=== PATIENT | male | born 1965 | race Caucasian/White ===

== ENCOUNTER → 2024-05-17 | Outpatient (CLI) | payer BC, SELFPAY ==
--- NOTE | 2024-05-17 | XR_ITS ---
Examination: Fingers, right hand third digit 3 views Technique: AP, oblique, lateral views right hand third digit 3 views. Exam date and time: May 17, 2024 1135 hours INDICATIONS: Right hand third digit pain beginning one year ago FINDINGS: No fracture or dislocation No cortical bone destruction No opaque foreign body Minimal osteoarthritis distal interphalangeal joint IMPRESSION: No fracture or dislocation No foreign body No cortical bone destruction
== END | disposition home or self-care (01) ==
LOC: CDIM 10:42
PROVIDERS: PCP Internal Medicine; Referring Provider Orthopaedic Surgery; Visit Provider Orthopaedic Surgery
DX: M79.644 Pain in right finger(s) (principal)
CPT/HCPCS: 73140

== ENCOUNTER → 2024-07-20 | Outpatient (CLI) | payer BC, SELFPAY ==
--- NOTE | 2024-07-20 08:39 | XR_ITS ---
Examination: Retroperitoneal ultrasound, complete Technique: Multiple high resolution grayscale images of the retroperitoneum obtained, including kidneys and bladder. Exam date and time:July 20, 2024 0940 hours INDICATIONS: Right flank pain beginning 4 days ago. FINDINGS: Right kidney 13.7 cm renal cortex 2.0 cm Upper pole cyst 3.9 cm Perinephric stranding Left kidney 13.7 cm cortex 2.1 cm Multiple renal cysts, the largest upper pole 4.1 cm Mild bilateral renal parenchymal scar formation No hydronephrosis No bladder mass Bladder prevoid volume 440 cc Prostate volume 32 cc no prostate nodules IMPRESSION: Mild bilateral renal parenchymal scar formation. No hydronephrosis
[2024-07-20 10:30] LABS: Basophils % (Auto) 0 % (0-2.5); Eosinophils # (Auto) 0.1 Thou/mm3 (0.0-0.5); Eosinophils % (Auto) 3 % (0-10); Hematocrit 46.6 % (41.0-53.0); Hemoglobin 16.2 g/dL (13.5-16.0); Immature Granulocytes % (Auto) 0 % (0-0); Immature Granulocytes Auto 0.01 Thou/mm3 (0.00-0.00); Lymphocytes # (Auto) 1.2 Thou/mm3 (1.0-4.8); Lymphocytes % (Auto) 23 % (10-50); Mean Corpuscular HGB Conc 34.8 g/dl (31.0-37.0); Mean Corpuscular Hemoglobin 27.8 pg (25.0-35.0); Mean Corpuscular Volume 80 fL (80-100); Monocytes # (Auto) 0.5 Thou/mm3 (0.0-0.8); Monocytes % (Auto) 10 % (0-12); Neutrophils # (Auto) 3.4 Thou/mm3 (1.8-7.7); Neutrophils % (Auto) 65 % (37-80); Nucleated Red Blood Cell % 0 /100 WBC (0); Platelet Count 163 Thou/mm3 (140-440); RDW Standard Deviation 38.6 fL (35.1-43.9); Red Blood Count 5.82 Miln/mm3 (4.50-5.90); White Blood Count 5.3 Thou/mm3 (3.8-10.6)
[2024-07-20 10:49] LABS: Glucose Estimated Average 166 mg/dL (80-131); Hemoglobin A1C 7.4 % Hgb (4.8-6.0)
[2024-07-20 10:53] LABS: Vitamin B12 435 pg/mL (211-911); Vitamin D 25 Hydroxy Total 93.9 ng/mL (7.3-40.2)
[2024-07-20 10:56] LABS: Alanine Aminotransferase 20 U/L (10-49); Albumin, Serum 4.3 gm/dL (3.5-5.0); Albumin/Globulin Ratio 2.4 (1.2-2.2); Alkaline Phosphatase 56 U/L (46-116); Anion Gap 9 (7-16); Aspartate Amino Transferase 16 U/L (0-34); BUN/Creatinine Ratio 16 Ratio (12-20); Blood Urea Nitrogen 16 mg/dL (9-23); Calcium 9.5 mg/dL (8.3-10.6); Calcium (Corrected) 9.5 mg/dL (8.5-10.1); Carbon Dioxide 29.2 mMol/L (20.0-31.0); Cardiac Risk Estimate 6.7 RATIO (4.0-6.7); Chloride 103 mMol/L (98-107); Cholesterol 202 mg/dL (132-200); Globulin 1.8 gm/dL (2.3-3.5); Glucose 132 mg/dL (74-106); HDL Cholesterol 30 mg/dL (40-60); LDL Cholesterol,Calculated 152 mg/dL (0-130); Osmolality,Calculated 284 (275-295); Potassium 4.7 mMol/L (3.4-5.1); Sodium 141 mMol/L (136-145); Thyroid Stimulating Hormone 1.74 uIU/mL (0.55-4.78); Total Protein 6.1 gm/dL (5.7-8.2); Triglycerides 102 mg/dL (30-150); eGFR > 60 See Note
[2024-07-20 11:06] LABS: Collection Type, Urine Clean Catch; Squamous Epithelial Cell,Urine 0 /hpf (0-5)
[2024-07-20 11:55] LABS: Bilirubin,Urine Negative (Negative); Blood,Urine Negative (Negative); Clarity,Urine Clear (Clear/Hazy); Color,Urine Colorless (Lt Yel-Yel); Glucose, Urine Negative (Negative); Ketones,Urine Negative (Negative); Leukocyte Esterase,Urine Negative (Negative); Nitrite,Urine Negative (Negative); PH,Urine 6.5 (5.0-7.0); Protein,Urine Negative (Neg - Trace); RBC,Urine 1 /hpf (0-3); Specific Gravity,Urine 1.009 (1.001-1.035); Urobilinogen,Urine Negative mg/dL (0.0-1.0); WBC,Urine < 1 /hpf (0-5)
[2024-07-20 12:01] LABS: Creatinine,Random Urine 39 mg/dL (30-125)
== END | disposition home or self-care (01) ==
LOC: CDIM 08:37 → COPL 10:01
PROVIDERS: PCP Internal Medicine; Referring Provider Internal Medicine; Visit Provider Internal Medicine
DX: Z00.00 Encounter for general adult medical examination without abnormal findings (principal); E11.9 Type 2 diabetes mellitus without complications; I10 Essential (primary) hypertension; E78.5 Hyperlipidemia, unspecified; N23 Unspecified renal colic; N28.89 Other specified disorders of kidney and ureter
CPT/HCPCS: 36415; 76770; 80053; 80061; 81001; 82306; 82570; 82607; 83036; 84153; 84443; 84550; 85025

== ENCOUNTER → 2024-09-08 | Outpatient (CLI) | payer BC, SELFPAY ==
--- NOTE | 2024-09-08 12:49 | XR_ITS ---
Examination: Lumbar spine, 5 views Technique: Lumbar spine AP, lateral, coned lateral lower lumbar spine, bilateral obliques 5 views Exam date and time: September 08, 2024 1329 hours INDICATIONS: Lower back pain months. FINDINGS: Adequate alignment lumbar vertebral bodies No lumbar fracture Mild diffuse lumbar disc narrowing Mild lumbar spondylosis IMPRESSION: Mild diffuse lumbar degenerative disc disease
--- NOTE | 2024-09-08 13:00 | XR_ITS ---
Examination: CT abdomen and pelvis without contrast. Coronal 3-D reconstructions. Sagittal 2-D reconstructions. Date and time of exam:September 08, 2024 1305 hours INDICATIONS: Bilateral flank pain 3 months CTDI: vol (mGy): 8.86 DLP: (mGycm): 525 Technique: Axial images of the abdomen have been obtained, 3 mm slice thickness Intravenous contrast material has not been administered. Low dose protocols were performed. One or more of the following dose reduction techniques were used; automated exposure control, adjustment of the mA and/or KV according to patient size, use of iterative reconstruction technique. Findings: No focal liver or splenic lesion No gallstones No pancreatic or adrenal mass Bilateral benign renal cysts No hydronephrosis renal or ureteral calculi Aorta normal size No bowel obstruction 2 mm calculus in the bladder No significant prostatomegaly IMPRESSION: No current hydronephrosis 2 mm calculus in the bladder
== END | disposition home or self-care (01) ==
LOC: CCTX 12:43
PROVIDERS: PCP Internal Medicine; Referring Provider Internal Medicine; Visit Provider Internal Medicine
DX: N21.0 Calculus in bladder (principal); M51.360 Other intervertebral disc degeneration, lumbar region with discogenic back pain only
CPT/HCPCS: 72110; 74176

== ENCOUNTER → 2024-12-08 | Outpatient (CLI) | payer BC, SELFPAY ==
[2024-12-08 11:16] LABS: Collection Type, Urine Clean Catch; Squamous Epithelial Cell,Urine 0 /hpf (0-5)
[2024-12-08 12:03] LABS: Basophils # (Auto) 0.1 Thou/mm3 (0.0-0.2); Basophils % (Auto) 1 % (0-2.5); Eosinophils # (Auto) 0.2 Thou/mm3 (0.0-0.5); Eosinophils % (Auto) 2 % (0-10); Hematocrit 46.9 % (41.0-53.0); Hemoglobin 16.3 g/dL (13.5-16.0); Immature Granulocytes Auto 0.02 Thou/mm3 (0.00-0.00); Lymphocytes # (Auto) 1.1 Thou/mm3 (1.0-4.8); Lymphocytes % (Auto) 18 % (10-50); Mean Corpuscular HGB Conc 34.8 g/dl (31.0-37.0); Mean Corpuscular Hemoglobin 28.7 pg (25.0-35.0); Mean Corpuscular Volume 83 fL (80-100); Monocytes # (Auto) 0.5 Thou/mm3 (0.0-0.8); Monocytes % (Auto) 7 % (0-12); Neutrophils # (Auto) 4.6 Thou/mm3 (1.8-7.7); Neutrophils % (Auto) 72 % (37-80); Nucleated Red Blood Cell # 0.00 Thou/mm3 (0.00-0.00); Nucleated Red Blood Cell % 0 /100 WBC (0); Platelet Count 172 Thou/mm3 (140-440); RDW Standard Deviation 39.2 fL (35.1-43.9); Red Blood Count 5.68 Miln/mm3 (4.50-5.90); White Blood Count 6.4 Thou/mm3 (3.8-10.6)
[2024-12-08 12:09] LABS: Bilirubin,Urine Negative (Negative); Blood,Urine Negative (Negative); Clarity,Urine Clear (Clear/Hazy); Color,Urine Yellow (Lt Yel-Yel); Culture Indicated,Urine Not Indicated; Glucose, Urine Trace (Negative); Ketones,Urine Negative (Negative); Leukocyte Esterase,Urine Negative (Negative); Nitrite,Urine Negative (Negative); PH,Urine 6.0 (5.0-7.0); Protein,Urine Negative (Neg - Trace); RBC,Urine 3 /hpf (0-3); Specific Gravity,Urine 1.022 (1.001-1.035); Urobilinogen,Urine Negative mg/dL (0.0-1.0); WBC,Urine 1 /hpf (0-5)
[2024-12-08 12:24] LABS: Albumin, Serum 4.5 gm/dL (3.5-5.0); Anion Gap 8 (7-16); BUN/Creatinine Ratio 12 Ratio (12-20); Blood Urea Nitrogen 12 mg/dL (9-23); Calcium 9.7 mg/dL (8.3-10.6); Calcium (Corrected) 9.7 mg/dL (8.5-10.1); Carbon Dioxide 30.7 mMol/L (20.0-31.0); Chloride 103 mMol/L (98-107); Creatinine (Component) 1.0 mg/dL (0.6-1.3); Glucose 98 mg/dL (74-106); Osmolality,Calculated 282 (275-295); Phosphorous 2.8 mg/dL (2.4-5.1); Potassium 4.7 mMol/L (3.4-5.1); Sodium 142 mMol/L (136-145); eGFR > 60 See Note
[2024-12-08 12:25] LABS: Creatinine MALB Rnd Ur 161 mg/dL (30-125); Microalbumin Creat Ratio 6 mg/gCrea (<30); Microalbumin, Random Urine 9 mg/L (0-300)
== END | disposition home or self-care (01) ==
LOC: COPL 10:27
PROVIDERS: PCP Internal Medicine; Referring Provider Internal Medicine; Visit Provider Internal Medicine
DX: Z00.00 Encounter for general adult medical examination without abnormal findings (principal); N18.9 Chronic kidney disease, unspecified; D63.1 Anemia in chronic kidney disease
CPT/HCPCS: 36415; 80069; 81001; 82043; 82570; 85025

== ENCOUNTER → 2024-12-18 | Outpatient (CLI) | payer BC, SELFPAY ==
[2024-12-18 10:50] LABS: Parathyroid Hormone Intact 64.1 pg/ml (18.5-88.0)
[2024-12-18 10:58] LABS: Vitamin D 25 Hydroxy Total 51.5 ng/mL (7.3-40.2)
[2024-12-18 11:01] LABS: Glucose Estimated Average 160 mg/dL (80-131); Hemoglobin A1C 7.2 % Hgb (4.8-6.0)
[2024-12-18 11:06] LABS: Collection Type, Urine Clean Catch
[2024-12-18 11:11] LABS: Albumin, Serum 4.4 gm/dL (3.5-5.0); Anion Gap 9 (7-16); BUN/Creatinine Ratio 10 Ratio (12-20); Blood Urea Nitrogen 10 mg/dL (9-23); Calcium 9.9 mg/dL (8.3-10.6); Calcium (Corrected) 9.9 mg/dL (8.5-10.1); Carbon Dioxide 30.7 mMol/L (20.0-31.0); Chloride 105 mMol/L (98-107); Creatinine (Component) 1.0 mg/dL (0.6-1.3); Glucose 103 mg/dL (74-106); Osmolality,Calculated 287 (275-295); Phosphorous 3.0 mg/dL (2.4-5.1); Potassium 4.5 mMol/L (3.4-5.1); Sodium 145 mMol/L (136-145); Total Protein 5.9 gm/dL (5.7-8.2); eGFR > 60 See Note
[2024-12-18 11:21] LABS: Uric Acid 5.8 mg/dL (3.7-9.2)
[2024-12-18 12:50] LABS: Bilirubin,Urine Negative (Negative); Blood,Urine Negative (Negative); Clarity,Urine Clear (Clear/Hazy); Color,Urine Lt-Yellow (Lt Yel-Yel); Glucose, Urine Negative (Negative); Ketones,Urine Negative (Negative); Leukocyte Esterase,Urine Negative (Negative); Nitrite,Urine Negative (Negative); PH,Urine 7.5 (5.0-7.0); Protein,Urine Negative (Neg - Trace); RBC,Urine 3 /hpf (0-3); Specific Gravity,Urine 1.016 (1.001-1.035); Squamous Epithelial Cell,Urine < 1 /hpf (0-5); Urobilinogen,Urine Negative mg/dL (0.0-1.0); WBC,Urine 1 /hpf (0-5)
== END | disposition home or self-care (01) ==
LOC: COPL 09:23
PROVIDERS: PCP Internal Medicine; Referring Provider Internal Medicine; Visit Provider Internal Medicine
DX: N20.0 Calculus of kidney (principal); E11.9 Type 2 diabetes mellitus without complications
CPT/HCPCS: 36415; 80069; 81001; 82306; 83036; 83970; 84155; 84550

== ENCOUNTER → 2024-12-19 | Outpatient (CLI) | payer BC, SELFPAY ==
[2024-12-19 14:13] LABS: Misc Send Out* See Sep Rpt
== END | disposition home or self-care (01) ==
LOC: SLDO 14:09
PROVIDERS: PCP Internal Medicine; Referring Provider Internal Medicine; Visit Provider Internal Medicine
DX: N20.0 Calculus of kidney (principal); E11.9 Type 2 diabetes mellitus without complications
CPT/HCPCS: 82340; 82507; 82570; 83735; 83945; 83986; 84105; 84133; 84300; 84392; 84560

== ENCOUNTER → 2025-01-05 | Outpatient (CLI) | payer BC, SELFPAY ==
--- NOTE | 2025-01-05 13:00 | XR_ITS ---
Examination: CT abdomen and pelvis without contrast. Coronal 3-D reconstructions. Sagittal 2-D reconstructions. Date and time of exam:January 05, 2025, 1315 hours, comparison September 08, 2024 INDICATIONS: Right flank pain beginning 7 months ago CTDI: vol (mGy): 8.06 DLP: (mGycm): 475 Technique: Axial images of the abdomen have been obtained, 3 mm slice thickness Intravenous contrast material has not been administered. Low dose protocols were performed. One or more of the following dose reduction techniques were used; automated exposure control, adjustment of the mA and/or KV according to patient size, use of iterative reconstruction technique. Findings: No focal liver or splenic lesions No gallstones No pancreatic or adrenal mass Bilateral benign renal cysts, the largest on the right side 4.7 cm, the largest on the left side 3.4 cm No renal or ureteral calculi, no hydronephrosis Aorta normal size Normal appendix No bowel obstruction Mild prostatomegaly Urinary bladder intact Tiny fat-containing inguinal hernias IMPRESSION: Bilateral benign renal cysts Normal appendix No bowel obstruction Mild prostatomegaly
== END | disposition home or self-care (01) ==
LOC: CCTX 12:45
PROVIDERS: PCP Internal Medicine; Referring Provider Internal Medicine; Visit Provider Internal Medicine
DX: N28.1 Cyst of kidney, acquired (principal); N40.0 Benign prostatic hyperplasia without lower urinary tract symptoms
CPT/HCPCS: 74176

== ENCOUNTER 2025-02-06 08:50 | Day surgery (SDC) | payer BC, SELFPAY ==
--- NOTE | 2025-01-31 06:20 | EKG_ITS ---
[facility] Test Date: 2025-01-31 Pat Name: LEONARDA PASCUAL Department: Room: - Gender: Male Director Of Quality Control: HELIO : 1965 Requested By: Maurilio De La Cruz Order Number: [id number] Reading MD: Maurilio De La Cruz Measurements Intervals Hydro Rate: 74 P: 51 OR: 135 QRS: -31 QRSD: 114 T: 36 QT: 392 QTc: 436 Interpretive Statements SINUS RHYTHM MARKED LEFT AXIS DEVIATION [QRS AXIS < -30] INCOMPLETE RIGHT BUNDLE BRANCH BLOCK [90+ ms QRS DURATION, TERMINAL R IN V1/V2, 40+ ms S IN I/aVL/V4/V5/V6] MINIMAL VOLTAGE CRITERIA FOR LVH, CONSIDER NORMAL VARIANT [MEETS CRITERIA IN ONE OF: R(aVL), S(V1), R(V5), R(V5/V6)+S(V1)] POSSIBLE LATERAL MYOCARDIAL INFARCTION , PROBABLY OLD [30 ms Q WAVE IN I/aVL/V5/V6] Compared to ECG 06/02/2017 11:03:24 Incomplete right bundle-branch block now present Myocardial infarct finding now present Sinus arrhythmia no longer present /store/S0/[id number]/ecg/[id number].pdf
[2025-01-31 07:09] VITALS: BMI 26.5
[2025-01-31 08:49] LABS: Collection Type, Urine Clean Catch; Squamous Epithelial Cell,Urine 0 /hpf (0-5)
[2025-01-31 10:06] LABS: Basophils # (Auto) 0.1 Thou/mm3 (0.0-0.2); Basophils % (Auto) 1 % (0-2.5); Eosinophils # (Auto) 0.1 Thou/mm3 (0.0-0.5); Eosinophils % (Auto) 2 % (0-10); Hematocrit 46.6 % (41.0-53.0); Hemoglobin 15.6 g/dL (13.5-16.0); Immature Granulocytes Auto 0.02 Thou/mm3 (0.00-0.00); Lymphocytes # (Auto) 1.5 Thou/mm3 (1.0-4.8); Lymphocytes % (Auto) 21 % (10-50); Mean Corpuscular HGB Conc 33.5 g/dl (31.0-37.0); Mean Corpuscular Hemoglobin 27.7 pg (25.0-35.0); Mean Corpuscular Volume 83 fL (80-100); Monocytes # (Auto) 0.6 Thou/mm3 (0.0-0.8); Monocytes % (Auto) 8 % (0-12); Neutrophils # (Auto) 4.8 Thou/mm3 (1.8-7.7); Neutrophils % (Auto) 68 % (37-80); Nucleated Red Blood Cell # 0.00 Thou/mm3 (0.00-0.00); Nucleated Red Blood Cell % 0 /100 WBC (0); Platelet Count 196 Thou/mm3 (140-440); RDW Standard Deviation 39.7 fL (35.1-43.9); Red Blood Count 5.63 Miln/mm3 (4.50-5.90); White Blood Count 7.1 Thou/mm3 (3.8-10.6)
[2025-01-31 10:08] LABS: Bilirubin,Urine Negative (Negative); Blood,Urine Negative (Negative); Clarity,Urine Clear (Clear/Hazy); Color,Urine Yellow (Lt Yel-Yel); Glucose, Urine Negative (Negative); Ketones,Urine Negative (Negative); Leukocyte Esterase,Urine Negative (Negative); Nitrite,Urine Negative (Negative); PH,Urine 5.5 (5.0-7.0); Protein,Urine Negative (Neg - Trace); RBC,Urine 1 /hpf (0-3); Specific Gravity,Urine 1.025 (1.001-1.035); Urobilinogen,Urine Negative mg/dL (0.0-1.0); WBC,Urine 1 /hpf (0-5)
[2025-01-31 10:19] LABS: Alanine Aminotransferase 19 U/L (10-49); Albumin, Serum 4.5 gm/dL (3.5-5.0); Albumin/Globulin Ratio 2.3 (1.2-2.2); Alkaline Phosphatase 45 U/L (46-116); Anion Gap 10 (7-16); Aspartate Amino Transferase 20 U/L (0-34); BUN/Creatinine Ratio 9 Ratio (12-20); Bilirubin,Total 0.8 mg/dL (0.3-1.2); Blood Urea Nitrogen 9 mg/dL (9-23); Calcium 9.7 mg/dL (8.3-10.6); Calcium (Corrected) 9.7 mg/dL (8.5-10.1); Carbon Dioxide 29.3 mMol/L (20.0-31.0); Chloride 104 mMol/L (98-107); Creatinine (Component) 1.0 mg/dL (0.6-1.3); Estimated Creatinine Clearance 84.2 mL/min (>60); Globulin 2.0 gm/dL (2.3-3.5); Glucose 112 mg/dL (74-106); Osmolality,Calculated 284 (275-295); Potassium 4.3 mMol/L (3.4-5.1); Sodium 143 mMol/L (136-145); Total Protein 6.5 gm/dL (5.7-8.2); eGFR > 60 See Note
[2025-01-31 10:21] LABS: Prostate Specific Antigen 2.03 ng/mL (0-4.00)
--- NOTE | 2025-02-05 11:19 | ESHP_ITS ---
RE: LEONARDA PASCUAL : 1965 DATE OF ADMISSION: 02/05/2025 HISTORY OF PRESENT ILLNESS: He is a 59 year old gentleman with a pain on his right side. He had a history of kidney pain in 06/2024. The patient has pain going from the front to the back. There is no history of kidney stones. Patient had trouble urinating 6-7 times after this previous episode. There is no history of gross hematuria. PAST SURGICAL HISTORY: Previous surgery is none. SOCIAL HISTORY: Patient has 2 children. ALLERGIES: NONE KNOWN. PAST MEDICAL HISTORY: He has history of diabetes mellitus and history of hypertension. HOME MEDICATIONS: He takes insulin. PHYSICAL EXAMINATION: HEENT: Normal. Neck: Supple. Lungs: Clear. Cardiovascular: Heart sounds are normal. Abdomen: Soft without any organomegaly. No guarding. No rigidity. Extremities: Normal. Phallus is normal. Testes are down. Scrotum and rectal: Examination reveal moderately enlarged smooth prostate without any hard nodules. Patient had a ultrasound of the kidney which revealed mild bilateral parenchymal scar formation without any hydronephrosis. Patient had CT scan of the abdomen which revealed benign bilateral renal cysts. No kidney stones. IMPRESSION: History of right renal and ureteral colic. PLAN: Cystoscopy, right retrograde pyelogram, possible right ureteroscopy, possible right ureteral stent insertion in view of his recurrent right renal colic and ureteral colic. Planned procedure risks and complications have been discussed with the patient. Patient has understood them and agreed to proceed. cc: Dr. Abiodun Morton MD DT: 11:10:22 TT: 11:17:00 Ref: [id number] - TID: [id number]
[2025-02-06] VITALS (7 sets, daily range): BP systolic 128–155; BP diastolic 77–92; PULSE 84–103; RESP 14–20; TEMP 36.6–37.6; O2SAT 94–100; BMI 26.0
[2025-02-06] MEDS: RINGERS LACTATED 1000 ML 1,000 ML 20 ML IV (09:58)
--- NOTE | 2025-02-06 10:45 | XR_ITS ---
EXAMINATION: OR retrograde pyelogram right with without KUB Fluoroscopy 11 spot fluoroscopic abdomen films Date and time: February 06, 2025, 1254 hours INDICATIONS: Right flank pain 7 months TECHNIQUE AND FINDINGS: 11. Spot fluoroscopic stones of the abdomen were obtained Opacification of the right renal calyces and dilated mid to lower ureter Ureteral stent in satisfactory position Fluoroscopy 58 seconds radiation dose 11.45 mGy IMPRESSION: Retrograde pyelogram as above
--- NOTE | 2025-02-06 12:33 | SUR.PHASEI ---
1233: Pt. wakes to name then drifts back to sleep, vitals stable, breathing unlabored, no complaint of pain or nausea, no dressing in place, no active bleed noted, report recieved from Saw GOETZ and Conrad DUDLEY.
--- NOTE | 2025-02-06 13:25 | SUR.PHASEII ---
1325: Pt. AAOx4, vitals stable, breathing unlabored, no complaint of pain or nausea, no dressing in place, pt. able to void hematuria, pt. tolerated sips of water well, pt. ambulated to wheelchair with steady gait and no assist, no complications. Gave discharge instructions to the pt. and her ride, both verbalized understanding and had no further questions. Pt. left with all personal belongings.
--- NOTE | 2025-02-06 13:34 | ESOP_ITS ---
RE: LEONARDA PASCUAL : 1965 DATE OF OPERATION: 02/06/2025 PREOPERATIVE DIAGNOSES: Recurrent right ureteral and renal colic, history of bilateral renal cysts, and history of diabetes mellitus. POSTOPERATIVE DIAGNOSES: Recurrent right ureteral and renal colic, history of bilateral renal cysts, and history of diabetes mellitus. PROCEDURE PERFORMED: Cystoscopy, right retrograde pyelogram, right ureteroscopy, removal of a right distal ureterovesical junction stone, and insertion of the right ureteral stent. FINDINGS: Right ureterocele and 0.5 to 0.6 cm ureteral stone near the right ureterocele. DESCRIPTION OF PROCEDURE: Patient is a 59-year-old diabetic male with recurrent UTIs. He had at least 7 episodes of severe ureteral colic going from the back to the front. He had 2 CT scans of the abdomen and pelvis done. One of them revealed a 0.5 mm stone near the right bladder area. Patient is diabetic and he is on insulin. After the patient was brought to the operating table under adequate general anesthesia in dorsal lithotomy position, parts were prepped and draped in the usual fashion. Cystoscopy was then carried out which revealed adequate urethral meatus, normal-appearing urethra, and mildly enlarged bilobed prostate. Scope was introduced into the bladder. Residual urine was about 2 ounces, yellow and clear, and was sent for culture and sensitivity examination. Inspection of the bladder revealed no intravascular stones or tumors. Right ureteral orifice revealed a right ureterocele. The left ureteral orifice is normal. A guidewire was passed through the right ureteral orifice which is quite small, but has a right-sided ureterocele. The guidewire was passed and then the ureteral catheter was passed over the guidewire and was advanced all the way up to the right kidney. There was no obstruction to the passage of the right ureteral catheter. Right retrograde pyelogram was obtained which revealed no hydronephrosis on the right side and a normal appearing calyceal system. The open-tip ureteral catheter was removed. I then did a ureteroscopy on the right side with a semi-rigid ureteroscope. It was passed through the penis into the bladder and up the ureter. Ureter appears to be open except at the end. Near the right ureterocele, I saw the stone which is about 0.5-0.6 cm in size. This was basketed and this was pulled out into the bladder and removed and sent for chemical examination. Repeat ureteroscopy did not reveal any further stones. I decided to put a stent and put a 5-Ghanaian 26 cm double-J ureteral stent which was passed over the guidewire under C-arm fluoroscopy control so as the proximal loop is lying in the right kidney and distal loop is in the bladder. Scope was removed. Patient tolerated the entire procedure well and left the room in good condition. Patient's PSA is normal at 2.03 and rectal examination also revealed a small prostate without any hard nodules. Thank you very much for your kind referral. cc: Dr. Abiodun Morton MD DT: 12:52:57 TT: 13:31:00 Ref: [id number] - TID: [id number]
[2025-02-15 17:52] LABS: Stone Analysis Source R URETERAL
[2025-02-16 06:41] LABS: Stone Analysis Weight 0.010 g
== END 2025-02-06 13:25 | disposition home or self-care (01) ==
PROVIDERS: Anesthesiology; PCP Internal Medicine; Referring Provider Surgery; Visit Provider Surgery
PROC: 0TJB8ZZ Inspection of Bladder, Via Natural or Artificial Opening Endoscopic (ICD-10-PCS; CPT 52000; principal; 2025-02-06 10:45)
DX: N23 Unspecified renal colic (principal); N28.89 Other specified disorders of kidney and ureter; Z01.810 Encounter for preprocedural cardiovascular examination; N20.1 Calculus of ureter; E11.9 Type 2 diabetes mellitus without complications
CPT/HCPCS: 52352; 52332; 74420; 82365; 87086; 93005; A4217; A4649; C1876; C1894; J0131; J0694; J1100; J1885; J2250; J2371; J2405; J2704; J2765; J3010; J3490; J7120

== ENCOUNTER 2025-02-18 09:53 | Emergency (ER) | payer BC, SELFPAY ==
[2025-02-18 09:54] VITALS: BMI 25.8
[2025-02-18 10:00] VITALS: BP 157/82; PULSE 77; RESP 18; TEMP 36.4; O2SAT 100; BMI 25.8
--- NOTE | 2025-02-18 10:23 | XR_ITS ---
EXAMINATION: PA chest single view TECHNIQUE: Upright PA chest single view Date and time: February 18, 2025, 1046 hours, comparison October 31, 2020 INDICATIONS: Onset weakness today. FINDINGS: Normal heart size. No pneumonia or pulmonary edema. The osseous structures are intact IMPRESSION: No active disease
--- NOTE | 2025-02-18 10:23 | EKG_ITS ---
[facility] Test Date: 2025-02-18 Pat Name: LEONARDA APSCUAL Department: Room: - Gender: Male Volumetric Weigher: : 1965 Requested By: Ruby Mejia Order Number: [id number] Reading MD: Ruby Mejia Measurements Intervals [place] Rate: 84 P: 47 HI: 142 QRS: -33 QRSD: 113 T: 35 QT: 373 QTc: 441 Interpretive Statements SINUS RHYTHM LEFT AXIS DEVIATION [QRS AXIS < -30] INCOMPLETE RIGHT BUNDLE BRANCH BLOCK [90+ ms QRS DURATION, TERMINAL R IN V1/V2, 40+ ms S IN I/aVL/V4/V5/V6] MINIMAL VOLTAGE CRITERIA FOR LVH, CONSIDER NORMAL VARIANT [MEETS CRITERIA IN ONE OF: R(aVL), S(V1), R(V5), R(V5/V6)+S(V1)] NONSPECIFIC ST ELEVATION [0.05+ mV ST ELEVATION] Compared to ECG 01/31/2025 07:59:18 ST (T wave) deviation now present Myocardial infarct finding no longer present /store/S0/[id number]/ecg/[id number].pdf
--- NOTE | 2025-02-18 10:24 | EDRME_ITS ---
Rapid Medical Screening Exam [facility] Arrival date/time: 02/18/25 09:53 This is a 59-year-old male that comes into the emergency room with complaints of weakness. Patient states a couple days ago he had some shooting pains coming from bilateral forearms. Patient denies chest pain shortness of breath. Patient reports feeling fatigued. Patient states that he recently had a stent placed to his right ureter. Patient states his procedure was done approximately 2 weeks ago. Patient reports that at that time they put him on Cipro after his procedure. Patient also has a history of diabetes and high blood pressure. Patient denies upper respiratory symptoms such as cough, runny nose, sore throat. I have greeted and performed a focused initial assessment of this patient. Initial appropriate labs ordered at this time. A comprehensive ED assessment and evaluation of the patient and analysis of all test and completion of medical decision making process will be conducted by additional ED provider. Chief Complaint: Weakness Time Seen by Provider: 02/18/25 10:04 Vital signs: Vital Signs Temperature 97.6 F 02/18/25 10:00 Pulse Rate 77 02/18/25 10:00 Respiratory Rate 18 02/18/25 10:00 Blood Pressure 157/82 H 02/18/25 10:00 Pulse Oximetry (%) 100 02/18/25 10:00 Oxygen Delivery Method Room Air 02/18/25 10:00 Exam: Breathing even and unlabored. Patient in no acute distress. Clinical Impression: Differential diagnoses VT, UTI, URI.
[2025-02-18 10:53] LABS: Collection Type, Urine Voided; Squamous Epithelial Cell,Urine 0 /hpf (0-5)
[2025-02-18 10:54] LABS: Basophils # (Auto) 0.0 Thou/mm3 (0.0-0.2); Basophils % (Auto) 0 % (0-2.5); Eosinophils # (Auto) 0.1 Thou/mm3 (0.0-0.5); Eosinophils % (Auto) 1 % (0-10); Hematocrit 46.1 % (41.0-53.0); Hemoglobin 15.7 g/dL (13.5-16.0); Immature Granulocytes Auto 0.03 Thou/mm3 (0.00-0.00); Lymphocytes # (Auto) 1.0 Thou/mm3 (1.0-4.8); Lymphocytes % (Auto) 10 % (10-50); Mean Corpuscular HGB Conc 34.1 g/dl (31.0-37.0); Mean Corpuscular Hemoglobin 28.1 pg (25.0-35.0); Mean Corpuscular Volume 83 fL (80-100); Monocytes # (Auto) 0.5 Thou/mm3 (0.0-0.8); Monocytes % (Auto) 5 % (0-12); Neutrophils # (Auto) 8.0 Thou/mm3 (1.8-7.7); Neutrophils % (Auto) 84 % (37-80); Nucleated Red Blood Cell # 0.00 Thou/mm3 (0.00-0.00); Nucleated Red Blood Cell % 0 /100 WBC (0); Platelet Count 196 Thou/mm3 (140-440); RDW Standard Deviation 39.4 fL (35.1-43.9); Red Blood Count 5.58 Miln/mm3 (4.50-5.90); White Blood Count 9.5 Thou/mm3 (3.8-10.6)
[2025-02-18 11:04] LABS: Bilirubin,Urine Negative (Negative); Blood,Urine Negative (Negative); Clarity,Urine Clear (Clear/Hazy); Color,Urine Lt-Yellow (Lt Yel-Yel); Culture Indicated,Urine Not Indicated; Glucose, Urine Negative (Negative); Ketones,Urine Trace (Negative); Leukocyte Esterase,Urine Negative (Negative); Nitrite,Urine Negative (Negative); PH,Urine 8.0 (5.0-7.0); Protein,Urine Negative (Neg - Trace); RBC,Urine 2 /hpf (0-3); Specific Gravity,Urine 1.018 (1.001-1.035); Urobilinogen,Urine Negative mg/dL (0.0-1.0); WBC,Urine < 1 /hpf (0-5)
[2025-02-18 11:13] LABS: Alanine Aminotransferase 22 U/L (10-49); Albumin, Serum 4.6 gm/dL (3.5-5.0); Anion Gap 9 (7-16); Aspartate Amino Transferase 20 U/L (0-34); BUN/Creatinine Ratio 9 Ratio (12-20); Bilirubin,Total 0.9 mg/dL (0.3-1.2); Blood Urea Nitrogen 9 mg/dL (9-23); Calcium 9.3 mg/dL (8.3-10.6); Calcium (Corrected) 9.3 mg/dL (8.5-10.1); Carbon Dioxide 29.5 mMol/L (20.0-31.0); Chloride 105 mMol/L (98-107); Creatinine (Component) 1.0 mg/dL (0.6-1.3); Estimated Creatinine Clearance 84.2 mL/min (>60); Globulin 1.6 gm/dL (2.3-3.5); Glucose 129 mg/dL (74-106); Osmolality,Calculated 285 (275-295); Potassium 4.3 mMol/L (3.4-5.1); Sodium 143 mMol/L (136-145); Total Protein 6.2 gm/dL (5.7-8.2); Troponin I < 0.020 ng/mL (0.0-0.045); eGFR > 60 See Note
[2025-02-18 11:14] LABS: Albumin/Globulin Ratio 2.9 (1.2-2.2); Alkaline Phosphatase 49 U/L (46-116)
--- NOTE | 2025-02-18 11:39 | PD.EDWEAK ---
ED Weakness RME/HPI General Chief complaint: Weakness Stated complaint: WEAKNESS Time Seen by Provider: 02/18/25 10:04 Arrival date/time: 02/18/25 09:53 RME / HPI RME / HPI Narrative: 02/18/25 09:53 This is a 59-year-old male that comes into the emergency room with complaints of weakness. Patient states a couple days ago he had some shooting pains coming from bilateral forearms. Patient denies chest pain shortness of breath. Patient reports feeling fatigued. Patient states that he recently had a stent placed to his right ureter. Patient states his procedure was done approximately 2 weeks ago. Patient reports that at that time they put him on Cipro after his procedure. Patient also has a history of diabetes and high blood pressure. Patient denies upper respiratory symptoms such as cough, runny nose, sore throat. I have greeted and performed a focused initial assessment of this patient. Initial appropriate labs ordered at this time. A comprehensive ED assessment and evaluation of the patient and analysis of all test and completion of medical decision making process will be conducted by additional ED provider. DR. KEMP MAIN ED EVALUATION: 59-year-old male with a history of type 1 diabetes mellitus and benign essential hypertension presents to the Emergency Department accompanied by his for evaluation of generalized weakness and nausea. The patient reports that he began feeling weak and tired yesterday, and the symptoms worsened this morning. He experienced similar symptoms on Wednesday. He denies chest pain, cough, dysuria, vomiting, or vision changes. He did have a headache all day yesterday, which improved with ibuprofen and hydration, and is no longer present today. He denies fever, chills, or flank pain. He takes his regular medications and reports no new prescriptions or recent medication changes. The patient underwent right ureteral stent placement for a kidney stone two weeks ago, with subsequent stone removal. His PCP is Dr. Morton. Related Data Home Medications ?Medication ?Instructions ?Recorded ?Confirmed insulin glargine 100 unit/mL 40 unit subcut HS Diabetes 01/31/25 01/31/25 subcutaneous solution (Lantus U-100 Insulin) Previous Rx's ?Medication ?Instructions ?Recorded ciprofloxacin HCl 500 mg tablet 500 mg PO BID #14 tabs 02/06/25 (Cipro) hydrocodone 5 mg-acetaminophen 325 1 tab PO Q6H PRN pain #30 tabs 02/06/25 mg tablet Allergies Allergy/AdvReac Type Severity Reaction Status Date / Time No Known Allergies Allergy Verified 01/31/25 07:12 Review of Systems Review of Systems Systems Reviewed: All systems reviewed, normal except as documented Past Medical History Past Medical History GENITOURINARY: Positive Genitourinary Disorders, Kidney Stones and Benign Prostatic Hyperplasia MUSCULOSKELETAL: Positive Musculoskeletal Disorders and Arthritis ENDOCRINE: Positive Endocrine Disorders and Diabetes Mellitus Type 2 OTHER HISTORY: Positive Hospitalization (infection), Shingles and Chicken Pox Family History FAMILY HISTORY: Positive Family Cardiac Disorders, Family Cancer and Family Surgery Social History SMOKING STATUS: Never smoker SUBSTANCE USE: does not use ALCOHOL: Never ED Exam Narrative Physical exam: GENERAL APPEARANCE: alert and oriented x 4, well-developed, well-nourished, no acute distress VITALS: All vitals were reviewed and the pulse ox is 100% on room air, which is normal according to my interpretation. HEENT: Normocephalic, atraumatic; pupils equal, round, reactive to light; EOMI; mucous membranes pink, moist; oropharynx clear NECK: Supple LUNGS: CTABL; no wheezes, no rales, no rhonchi HEART: Regular rate, regular rhythm; normal S1, S2; no murmurs ABDOMEN: non distended; normal BS; soft, no tenderness, no guarding, no rebound; no masses, no organomegaly, no hernia BACK: no CVA tenderness EXTREMITIES: atraumatic; no edema NEUROLOGIC: awake; alert and oriented x4; cranial nerves II-XII grossly intact; no focal sensory or motor deficits PSYCHIATRIC: appropriate mood and affect SKIN: warm, dry, normal color; no rashes Course Quality Measures none Orders Category Date Time Status Bedside COVID-19 Antigen Test NOW Care 02/18/25 11:40 Active EKG (ED ONLY) *Do not use* NOW Care 02/18/25 10:23 Completed EKG (ED Only) Stat Exams 02/18/25 10:23 Draft XR chest 1V Stat Exams 02/18/25 10:23 Completed BNP [B-Type Natriuretic Peptide] Stat Lab 02/18/25 10:36 Completed CBC Stat Lab 02/18/25 10:36 Completed Comprehensive Metabolic Panel Stat Lab 02/18/25 10:36 Completed Influenza A & B Rapid Panel Stat Lab 02/18/25 12:04 Completed Strep A Rapid Stat Lab 02/18/25 12:04 Completed Troponin I Stat Lab 02/18/25 10:36 Completed Urinalysis, C/S if Indicated Stat Lab 02/18/25 10:45 Completed Vital Signs Vital signs: Vital Signs Temperature 97.6 F 02/18/25 10:00 Pulse Rate 77 02/18/25 10:00 Respiratory Rate 18 02/18/25 10:00 Blood Pressure 157/82 H 02/18/25 10:00 Pulse Oximetry (%) 100 02/18/25 10:00 Oxygen Delivery Method Room Air 02/18/25 10:00 Weakness MDM Narrative MDM Narrative:: I, Lis Ramirez, am scribing for and in the presence of Dr. Kemp. Patient data External records reviewed:: [facility] previous records Clinical information provided by:: patient and spouse Social determinants that could affect healthcare access:: none Patient has the following chronic illnesses:: Type 1 diabetes mellitus and benign essential hypertension. The patient underwent right ureteral stent placement for a kidney stone two weeks ago, with subsequent stone removal. How is presenting disease/condition affected by chronic disease/condition?: exacerbated by Evaluation data The following diagnostics were reviewed and interpreted by me:: lab results, radiology exam(s) and EKG tracing(s) (My interpretation: EKG performed at 1027 hours, sinus rhythm, rate 84, incomplete right bundle branch block, similar to EKG done 01/31/25.) Lab and/or radiology exams considered but not ordered:: none Interpretation Summary: Procedure(s): XR chest 1V Accession Number(s): [id number] cc: Alexis Turk MD; Ruby Mejia NP; Abiodun Morton MD~ EXAMINATION: PA chest single view TECHNIQUE: Upright PA chest single view Date and time: February 18, 2025, 1046 hours, comparison October 31, 2020 INDICATIONS: Onset weakness today. FINDINGS: Normal heart size. No pneumonia or pulmonary edema. The osseous structures are intact IMPRESSION: No active disease Dictated By: Alexis Turk MD Medications / Prescriptions Medications or Prescriptions considered but not ordered:: none Medication administrations:: see above if any Consultations Consultation(s) initiated? (list below): No Diagnosis Weakness Differential Diagnosis: other (Electrolyte imbalance, dehydration, and post-procedural fatigue.) Most likely diagnosis given after review of the tests above:: Generalized weakness Admission Indicated Admission indicated?: not indicated Admission Request Was there a request for admission?: No Disposition Plan Disposition Plan: Discharge Discharge Attestation Discharge Attestation: The patient and all family members were given an opportunity to ask questions and understood the discharge instructions. Discharge instructions specifically effects, indications for sooner follow up or return to the emergency department, and the expected course of current diagnosis. Patient condition: Stable Discharge Plan Plan Patient Disposition: HOME (Self Care) Prescriptions/Referrals Prescriptions/Med Rec: No Action insulin glargine [Lantus U-100 Insulin] 100 unit/mL solution 40 unit SUBCUT HS Patient Comments: None hydrocodone-acetaminophen 5-325 mg tablet 1 tab PO Q6H MDD 4 PRN (Reason: pain) Qty: 30 0RF ciprofloxacin HCl [Cipro] 500 mg tablet 500 mg PO BID Qty: 14 0RF Referrals: Abiodun Morton MD [Primary Care Provider, Nephrology] - In 1 week Problem List Clinical Impression: Generalized weakness Patient/Caregiver Discharge Instructions Education Materials: ED Weakness (Uncertain Cause) Print Language: East Timorese Stand Alone Forms: Shereen Award Info., Patient Portal Info Letter
[2025-02-18 12:03] LABS: B-Type Natriuretic Peptide 38 pg/mL (0-100)
[2025-02-18 12:40] LABS: Influenza A Ag Negative; Influenza B Ag Negative; Strep A Rapid Negative (Negative)
== END 2025-02-18 13:47 | disposition home or self-care (01) ==
PROVIDERS: Nurse Practitioner Family; Emergency Provider Emergency Medicine; PCP Internal Medicine
DX: R53.1 Weakness (principal); E10.9 Type 1 diabetes mellitus without complications; I10 Essential (primary) hypertension; Z79.4 Long term (current) use of insulin
CPT/HCPCS: 36415; 71045; 80053; 81001; 83880; 84484; 85025; 87502; 87651; 87811; 93005; 99282